=== PATIENT | male | born 1960 | race Caucasian/White ===

== ENCOUNTER 2023-08-02 13:52 | Observation (INO) | payer MEDICARE, MEDICAID, SELFPAY ==
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
--- NOTE | ~2023-08-02 | XR_ITS ---
EXAMINATION: XR RIBS, RIGHT CLINICAL INFORMATION: Evaluate for rib fracture, lung contusion COMPARISON: None available. TECHNIQUE: Single image of the chest and for detailed views of the right ribs FINDINGS: The single image of the chest demonstrate some increased markings in the lungs. Most noted mid to upper lung on the right. This could be chronic but a small area of infiltrate or contusion cannot be excluded given history. There is no pneumothorax. There is no effusion. Detailed imaging of the right ribs does not demonstrate convincing evidence for an underlying fracture. XR/XR ribs RT min 3V w CXR1V IMPRESSION: No pneumothorax or effusion or fracture. No previous exams to compare in the chest. There is density in the right upper lung which could represent an infiltrate or possibly contusion given the history of trauma. Recommend a follow-up film in 4-6 weeks to assess for resolution and establish baseline here
[2023-08-02 14:09] VITALS: BP 152/88; PULSE 128; O2SAT 96
[2023-08-02 14:21] VITALS: BP 162/103; PULSE 110; RESP 16; TEMP 36.6; O2SAT 96; BMI 31.1
--- NOTE | 2023-08-02 14:24 | ECG_ITS ---
Test Reason : SYNCOPE Blood Pressure : / mmHG Vent. Rate : 097 BPM Atrial Rate : 097 BPM P-R Int : 162 ms QRS Dur : 094 ms QT Int : 342 ms P-R-T Axes : 069 042 065 degrees QTc Int : 434 ms Normal sinus rhythm Incomplete right bundle branch block Borderline ECG No previous ECGs available Referred By: Félix Figueroa Electronically Signed By:JASON BATEMAN
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
[2023-08-02 16:11] VITALS: BP 161/97; PULSE 93; RESP 16; TEMP 36.8; O2SAT 96
[2023-08-02] MEDS: 0.9 % Sodium Chloride 1,000 ML 999 ML IV (16:18)
--- NOTE | 2023-08-02 16:21 | PC.NURSE ---
ambulated with steady gait to bathroom, urine sample obtained. iv established, labs drawn and sent. fluids infusing.
[2023-08-02 16:22] LABS: MANUAL DIFF FLAG NO
[2023-08-02 16:24] LABS: Appearance Urine Clear; Color Urine Yellow; Glucose Urine UA Negative (Negative); Leukocyte Esterase Urine Trace (Negative); Nitrite Urine Negative (Negative); UMIC TRIGGER UACC YES; Urine Blood Negative (Negative); Urine Ketones Negative (Negative); Urine Protein Negative (Neg-Trace)
[2023-08-02 16:25] LABS: Basophils Absolute Auto 0.1 X10*3/uL (0.0-0.2); Eosinophils Absolute Auto 0.2 X10*3/uL (0.0-0.4); Eosinophils Percent Auto 2.8 % (0-4); Hemoglobin 15.8 g/dl (14.0-18.0); Imm Gran Abs Auto 0.03 X10*3/uL (0.00-0.03); Imm Gran Pct Auto 0.4 % (0.0-0.4); Lymphocytes Absolute Auto 1.9 X10*3/uL (1.2-4.9); Lymphocytes Percent Auto 24.2 % (20-40); Mean Corpuscular HGB Conc 32.9 g/dl (31.0-36.0); Mean Corpuscular Hemoglobin 30.2 pg (27.0-33.0); Mean Corpuscular Volume 91.6 fL (80.0-98.0); Mean Platelet Volume 10.4 fL (9.4-12.4); Monocytes Absolute Auto 0.7 X10*3/uL (0.1-1.2); Monocytes Percent Auto 8.4 % (2-11); Neutrophils Absolute Auto 4.9 x10*3/uL (2.0-8.3); Neutrophils Percent Auto 63.2 % (45-73); Platelet Count 194 X10*3/uL (160-400); Red Blood Count 5.24 X10*6/uL (4.60-5.80); Red Cell Distribution Width 12.8 % (11.0-16.0); White Blood Count 7.8 X10*3/uL (4.8-10.8)
[2023-08-02 16:26] LABS: Bacteria Urine None Seen (None Seen); Hyaline Casts Urine 0-2 /LPF (0-2); RBC Urine 0-2 /HPF (0-2); Squamous Epithelial Cell Urine 0-2 /HPF (0-2); WBC Urine 0-5 /HPF (0-5)
[2023-08-02 16:41] LABS: Alanine Aminotransferase 24 U/L (0-40); Albumin Level 4.3 g/dL (3.5-5.0); Alkaline Phosphatase 101 U/L (39-117); Anion Gap 10 (12-20); Aspartate Amino Transferase 23 U/L (5-37); Bilirubin Direct 0.2 mg/dL (0.0-0.5); Bilirubin Total 0.4 mg/dL (0.0-1.0); Blood Urea Nitrogen 7 mg/dL (9-16); Calcium 9.3 mg/dL (8.4-10.2); Carbon Dioxide 27 mmol/L (22-29); Chloride 105 mmol/L (96-108); Creatinine Clr Calc Pharmacy 97.4; Estimated Glomerular Filt Rate > 60; Glucose Random 153 mg/dL (60-115); Lipase 13 U/L (8-78); Sodium 138 mmol/L (135-145); Total Protein 7.4 g/dL (6.5-8.0)
[2023-08-02 16:54] LABS: Troponin-I High Sensitivity < 2.7 ng/L (<3.5-35.0)
--- NOTE | 2023-08-02 18:34 | PHA.MEDREC ---
Pharmacy Consult ? Medication Reconciliation Pharmacy has completed the medication reconciliation. Patient had list of medications that match claim history. Obie ButlerD
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
[2023-08-02 22:14] VITALS: BP 159/98; PULSE 93; RESP 18; O2SAT 95
[2023-08-02] MEDS: Apixaban 5 MG TABLET PO (23:04)
[2023-08-02] MEDS: Propranolol HCL 40 MG TABLET PO (23:04)
[2023-08-02] MEDS: Topiramate 25 MG TABLET 50 MG PO (23:04)
[2023-08-02] MEDS: Amitriptyline HCl 25 MG TABLET 75 MG PO (23:04)
[2023-08-02] MEDS: 0.9 % Sodium Chloride Flush 3 ML SYRINGE IVFLUSH (23:05)
[2023-08-02 23:06] VITALS: BP 185/111; PULSE 93; RESP 18; TEMP 36.6; O2SAT 95
[2023-08-03] VITALS (8 sets, daily range): BP systolic 114–145; BP diastolic 71–91; PULSE 65–82; RESP 14–20; TEMP 36.2–36.9; O2SAT 93–95
[2023-08-03 06:58] LABS: MANUAL DIFF FLAG NO
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
[2023-08-03 07:03] LABS: Basophils Absolute Auto 0.1 X10*3/uL (0.0-0.2); Eosinophils Absolute Auto 0.2 X10*3/uL (0.0-0.4); Eosinophils Percent Auto 3.1 % (0-4); Hematocrit 46.6 % (42.0-52.0); Imm Gran Abs Auto 0.03 X10*3/uL (0.00-0.03); Imm Gran Pct Auto 0.4 % (0.0-0.4); Lymphocytes Absolute Auto 2.1 X10*3/uL (1.2-4.9); Lymphocytes Percent Auto 29.9 % (20-40); Mean Corpuscular HGB Conc 32.2 g/dl (31.0-36.0); Mean Corpuscular Hemoglobin 30.5 pg (27.0-33.0); Mean Corpuscular Volume 94.9 fL (80.0-98.0); Mean Platelet Volume 11.1 fL (9.4-12.4); Monocytes Absolute Auto 0.7 X10*3/uL (0.1-1.2); Monocytes Percent Auto 10.3 % (2-11); Neutrophils Absolute Auto 3.8 x10*3/uL (2.0-8.3); Neutrophils Percent Auto 55.3 % (45-73); Platelet Count 172 X10*3/uL (160-400); Red Blood Count 4.91 X10*6/uL (4.60-5.80); Red Cell Distribution Width 13.2 % (11.0-16.0); White Blood Count 6.9 X10*3/uL (4.8-10.8)
[2023-08-03 07:28] LABS: Anion Gap 10 (12-20); Blood Urea Nitrogen 8 mg/dL (9-16); Calcium 9.2 mg/dL (8.4-10.2); Carbon Dioxide 28 mmol/L (22-29); Chloride 107 mmol/L (96-108); Creatinine Clr Calc Pharmacy 98.7; Estimated Glomerular Filt Rate > 60; Glucose Random 114 mg/dL (60-115); Potassium 5.4 mmol/L (3.3-5.1); Sodium 140 mmol/L (135-145)
[2023-08-03] MEDS: Apixaban 5 MG TABLET PO ×2 (08:53→20:38)
[2023-08-03] MEDS: Famotidine 20 MG TABLET PO (08:53)
[2023-08-03] MEDS: Sodium Zirconium Cyclosilicate 10 GM POWD.PACK PO (08:53)
[2023-08-03] MEDS: Topiramate 25 MG TABLET 50 MG PO ×2 (08:53→20:38)
[2023-08-03] MEDS: 0.9 % Sodium Chloride Flush 3 ML SYRINGE IVFLUSH ×3 (08:54→20:39)
[2023-08-03] MEDS: Propranolol HCL 40 MG TABLET PO ×2 (08:54→20:38)
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
--- NOTE | 2023-08-03 14:42 | MHC.CM.PN ---
CM met with Pt at bedside, IMM given 08/03/23, Pt lives in a rented room in a house with other people, He did not have services, plan is to return home. HCP is , copy requested. PCP is ABDIEL Melendez at [facility] in [place].
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
[2023-08-03] MEDS: Acetaminophen 325 MG TABLET 650 MG PO (15:44)
[2023-08-03] MEDS: Amitriptyline HCl 25 MG TABLET 75 MG PO (20:38)
[2023-08-04] VITALS: BP 140/79; PULSE 66; RESP 20; TEMP 36.1; O2SAT 94
[2023-08-04 03:28] VITALS: BP 137/90; PULSE 66; RESP 20; TEMP 36.9; O2SAT 94
[2023-08-04 07:53] VITALS: BP 129/86; PULSE 69; RESP 18; TEMP 36.6; O2SAT 94
[2023-08-04] MEDS: Topiramate 25 MG TABLET 50 MG PO (08:26)
[2023-08-04] MEDS: Apixaban 5 MG TABLET PO (08:26)
[2023-08-04] MEDS: Propranolol HCL 40 MG TABLET PO (08:26)
[2023-08-04] MEDS: 0.9 % Sodium Chloride Flush 3 ML SYRINGE IVFLUSH (08:27)
[2023-08-04 09:18] LABS: Potassium 4.5 mmol/L (3.3-5.1)
--- NOTE | 2023-08-04 09:22 | PM.EVENT ---
Event Note Date of Service: 08/05/23 Event Note: Thoracic Surgery CT chest shows no acute traumatic injuries including any significant pulmonary contusion. Pending radiology final read. Patient does, however, have multiple pulmonary nodules the largest of which are in the RUL. Should have a repeat CT chest in 3 months. I have ordered this and will have patient followup with us as an outpatient in regards to these findings. Thoracic cleared for discharge as there are no acute thoracic issues at current time. We will reach out to patient as outpatient. Time Spent With Patient Time: Total time managing care of this patient today ____ minutes.
--- NOTE | 2023-08-04 11:23 | MHC.CM.PN ---
Patient has been medically cleared for dc to home today, self care.
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
[2023-08-04 11:46] VITALS: BP 134/80; PULSE 67; RESP 18; TEMP 36.1; O2SAT 94
--- NOTE | 2023-08-04 11:46 | PM.PNCARD ---
Subjective Subjective Date of Service: 08/04/23 Interval history: Seen and examined at bedside. asympatomatic. Echo reviewed. Physical Exam Vital Signs: Last Vital Signs Temp 97.8 F 08/04/23 07:53 Pulse 69 08/04/23 07:53 Resp 18 08/04/23 07:53 BP 129/86 08/04/23 07:53 Pulse Ox 94 08/04/23 07:53 O2 Del Method Room Air 08/04/23 07:53 BMI result Body Mass Index 31.1 GENERAL APPEARANCE: in no acute distress, pleasant. NECK: no carotid bruit, no jugular venous distention. SKIN: no suspicious lesions, warm and dry. HEART: no murmurs, regular rate and rhythm. LUNGS: clear to auscultation bilaterally. ABDOMEN: soft, nontender. EXTREMITIES: no edema. PERIPHERAL PULSES: equal. NEUROLOGIC: No gross deficits, AAO X 3 Objective Labs and Meds 08/03/23 06:11 08/04/23 08:53 Lab results: Laboratory Results - last 24 hr 08/04/23 08:53 Potassium 4.5 Progress Note: A&P Assessment and plan (1) Syncope: Status: Acute Plan 63-year-old gentleman presenting with syncope. No obvious arrhythmia. Echo has shown normal LVEF and no valvular disease. MADALYN as outpatient. Can be discharged from CV viewpoint. Time Spent With Patient Time: Total time managing care of this patient today ____ minutes. Progress Note: Quality Stroke Does the patient have a stroke diagnosis?: No Procedures Date of Service Date of Service: 08/04/23
--- NOTE | 2023-08-04 12:52 | PC.NURSE ---
Patient is alert and oriented X3. Neurologically intact. OWUSU to command 5/5 sensation intact. OOB with steady gait independent. LSCTA denies SOB or CP, NS on tele. BSX4 abdomen soft non-tender denies nausea/vomiting tolerating diet. Denies pain/discomfort. Plan for discharge to home this afternoon. Will continue to monitor and report changes
== END 2023-08-04 13:55 | disposition home or self-care (01) ==
LOC: HO.ED 18:10 → HO.EDOVER 19:25 → HO.IMC 20:26
PROVIDERS: Admitting Provider Student in an Organized Health Care Education/Training Program; Emergency Provider Emergency Medicine; Visit Provider Internal Medicine
DX: R55 Syncope and collapse (principal); S20.219A Contusion of unspecified front wall of thorax, initial encounter; V53.5XXA Driver of pick-up truck or van injured in collision with car, pick-up truck or van in traffic accident, initial encounter; Y93.9 Activity, unspecified; Y92.9 Unspecified place or not applicable; Y99.0 Civilian activity done for income or pay; I10 Essential (primary) hypertension; K21.9 Gastro-esophageal reflux disease without esophagitis; G43.909 Migraine, unspecified, not intractable, without status migrainosus; Z86.718 Personal history of other venous thrombosis and embolism; Z79.01 Long term (current) use of anticoagulants
CPT/HCPCS: 36415; 70450; 71101; 71250; 80048; 80076; 81001; 83690; 84132; 84484; 85025; 93005; 93306; 96360; 96361; 99222; 99285; Q9957

== ENCOUNTER 2023-08-02 19:14 | Outpatient (BNV) | payer MEDICARE, MEDICAID, SELFPAY | END 2023-08-03 07:00 | PROVIDERS: Admitting Provider Student in an Organized Health Care Education/Training Program; Emergency Provider Emergency Medicine; Visit Provider Internal Medicine Cardiovascular Disease | DX: I45.10 Unspecified right bundle-branch block (principal); R55 Syncope and collapse | CPT/HCPCS: 93306 ==

== ENCOUNTER → 2023-08-02 19:14 | Outpatient (BNV) | payer MEDICARE, MEDICAID, SELFPAY | PROVIDERS: Admitting Provider Student in an Organized Health Care Education/Training Program; Emergency Provider Emergency Medicine; Visit Provider Internal Medicine Cardiovascular Disease | DX: R55 Syncope and collapse (principal) | CPT/HCPCS: 99222; 99231 ==

== ENCOUNTER → 2023-08-02 19:14 | Outpatient (BNV) | payer MEDICARE, MEDICAID, SELFPAY | PROVIDERS: Admitting Provider Student in an Organized Health Care Education/Training Program; Emergency Provider Emergency Medicine; Visit Provider Student in an Organized Health Care Education/Training Program | DX: R55 Syncope and collapse (principal); V87.7XXA Person injured in collision between other specified motor vehicles (traffic), initial encounter | CPT/HCPCS: 99222; 99231; 99239 ==

== ENCOUNTER → 2023-09-06 11:07 | Outpatient (REF) | payer MEDICARE, MEDICAID, SELFPAY ==
--- NOTE | 2023-09-06 11:10 | HM_ITS ---
Cardiac event monitor Indication: Syncope Technique: Patient was hooked up to cardiac event monitor on 09/06/2023 for total period of 30 days with compliance rate of 85%. I was requested to read this study on 10/24/2023. Findings: Baseline rhythm is predominantly normal sinus rhythm with minimal heart rate of 66 beats per minute. There were is no significant pauses noted. There were rare episodes of PACs and PVCs noted. There is 1 episode of 7 beat run of paroxysmal atrial tachycardia at about 125 beats per minute. Patient reported event 16 times with no associated symptoms, correlating with either isolated PACs or PVCs. Conclusion: 1. Baseline was normal sinus rhythm with no significant pauses or sustained arrhythmias 2. Patient reported events some of which correlated with isolated PACs or PVCs MTDD
== END ==
LOC: HO.CARD 11:07
PROVIDERS: Visit Provider Internal Medicine Cardiovascular Disease
DX: R55 Syncope and collapse (principal)
CPT/HCPCS: 93270

== ENCOUNTER → 2023-09-06 11:10 | Outpatient (BNV) | payer MEDICARE, MEDICAID, SELFPAY | PROVIDERS: Visit Provider Internal Medicine Cardiovascular Disease | DX: I49.1 Atrial premature depolarization (principal) | CPT/HCPCS: 93272 ==

== ENCOUNTER 2023-11-15 11:33 | Outpatient (AMB) | payer MEDICARE, MEDICAID, SELFPAY ==
[2023-11-15 12:52] VITALS: BP 130/50; PULSE 72; BMI 31.2
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
== END 2023-11-15 13:31 | disposition home or self-care (01) ==
PROVIDERS: Visit Provider Nurse Practitioner
DX: R55 Syncope and collapse (principal)
CPT/HCPCS: 99213

== ENCOUNTER → 2023-11-15 11:33 | Outpatient (BNVA) | payer MEDICARE, SELFPAY | PROVIDERS: Visit Provider Nurse Practitioner | DX: R55 Syncope and collapse (principal) | CPT/HCPCS: 99212 ==